=== PATIENT | female | born 1950 | race Caucasian/White ===

== ENCOUNTER 2017-06-08 12:22 | Emergency (ER) | payer MEDICARE, BC ==
[2017-06-08 12:37] VITALS: BP 116/86
[2017-06-08] MEDS ORDERED: methylPREDNISolone 125 MG* 2 ML VIAL IM ONE (13:37)
--- NOTE | 2017-06-08 14:00 | UC ---
Skin Complaint HPI - HPI Summary HPI Summary: HIVE RASH ON ARMS AND LEGS FOR TWO DAYS. HAPPENED BEFORE, GIVEN SHOT HERE WHICH HELPED. RASH IS NOT PAINFUL BUT ITCHES. NO DRAINAGE. - History of Current Complaint Chief Complaint: UCRash Time Seen by Provider: 06/08/17 13:32 Stated Complaint: SKIN COMPLAINT Hx Obtained From: Patient, Family/Audio Video Tech Onset/Duration: Sudden Onset, Still Present Skin Exposure Onset/Duration: Days Ago Onset Severity: Mild Current Severity: Mild Location: Generalized - UPPER ARMS, THIGHS, STERNUM OF CHEST Character: Pruritus, Hives, Raised Aggravating: Nothing, Touch Alleviating: Nothing, Unknown, Other - GIVEN SHOT HERE LAST TIME WHICH HELPED Associated Signs & Symptoms: Positive: Negative, Rash. Negative: Fever, Chills , Cough, Hoarseness, Throat Tightening, Drainage, Bruising, Tenderness, Red Streaks Related History: Possible Reaction to: Environmental Exposure - Allergy/Home Medications Allergies/Adverse Reactions: Allergies Allergy/AdvReac Type Severity Reaction Status Date / Time No Known Allergies Allergy Verified 06/08/17 12:30 Review of Systems Constitutional: Negative Skin: Rash Eyes: Negative ENT: Negative Respiratory: Negative Cardiovascular: Negative Gastrointestinal: Negative Genitourinary: Negative Motor: Negative Neurovascular: Negative Musculoskeletal: Negative Neurological: Negative Psychological: Negative All Other Systems Reviewed And Are Negative: Yes PMH/Surg Hx/FS Hx/Imm Hx Previously Healthy: Yes - Surgical History Surgical History: Yes Surgery Procedure, Year, and Place: right lumpectomy 2005 - Family History Known Family History: Negative: Cardiac Disease, Hypertension, Diabetes - Social History Lives: With Family Alcohol Use: None Substance Use Type: None Smoking Status (MU): Former Smoker Type: Cigarettes When Did the Patient Quit Smoking/Using Tobacco: 2005 Physical Exam Triage Information Reviewed: Yes Appearance: Well-Appearing, No Pain Distress, Well-Nourished Vital Signs: Initial Vital Signs Temp 97.9 F 06/08/17 12:31 Pulse 87 06/08/17 12:31 Resp 16 06/08/17 12:31 BP 116/86 06/08/17 12:31 Pulse Ox 98 06/08/17 12:31 Vital Signs Reviewed: Yes Eye Exam: Normal ENT Exam: Normal ENT: Positive: Normal ENT inspection, TMs normal Dental Exam: Normal Neck exam: Normal Neck: Positive: Supple, Nontender Respiratory Exam: Normal Respiratory: Positive: Chest non-tender, Lungs clear, Normal breath sounds, No respiratory distress Cardiovascular Exam: Normal Cardiovascular: Positive: RRR, No Murmur Abdominal Exam: Normal Abdomen Description: Positive: Nontender, No Organomegaly Musculoskeletal Exam: Normal Neurological Exam: Normal Psychological Exam: Normal Skin: Positive: rashes - URTICARIAL RASH UPPER ARMS, THIGHS, STERNUM OF CHEST Course/Dx - Differential Diagnoses - Skin Complaint Differential Diagnoses: Contact Dermatitis, Eczema, Poison [place], Poison [place], Systemic Illness, Tinea, Urticaria, Viral [place] - Diagnoses Provider Diagnoses: URTICARIA Discharge - Discharge Plan Condition: Stable Disposition: HOME Prescriptions: Triamcinolone 0.1% Oint (NF) [Triamcinolone Acetonide] 0.1 % TOPICAL BID #1 oin Patient Education Materials: Contact Dermatitis (ED), Urticaria (ED) Referrals: Patric ANDERS,Anne-Marie Mallory [Primary Care Provider] - Additional Instructions: TAKE BENADRYL 50 MG PO BID FOR FIVE DAYS
== END 2017-06-08 14:02 | disposition home or self-care (01) ==
LOC: UCCORT 12:22
DX: L50.9 Urticaria, unspecified (principal); Z87.891 Personal history of nicotine dependence
CPT/HCPCS: 96372; 99212; G0463; J2930

== ENCOUNTER 2017-06-15 11:20 | Emergency (ER) | payer MEDICARE, BC ==
[2017-06-15 11:56] VITALS: BP 147/82
[2017-06-15] MEDS ORDERED: methylPREDNISolone ACETATE 40* 40 MG/ML 1 ML VIAL IM ONE (11:59)
[2017-06-15] MEDS ORDERED: methylPREDNISolone ACETATE 80* 80 MG/ML 1 ML VIAL ONE (12:03)
--- NOTE | 2017-06-15 12:11 | UC ---
Skin Complaint HPI - HPI Summary HPI Summary: PATIENT has had a longstaing rash, was treated with triamcinolone which helps it temporarily but then reappears. it is itchy, located in the arm folds, stomach, chest and groin. - History of Current Complaint Chief Complaint: UCSkin Time Seen by Provider: 06/15/17 11:46 Stated Complaint: RASH Hx Obtained From: Patient ?: No Onset/Duration: Gradual Onset, Lasting Weeks Skin Exposure Onset/Duration: Weeks Ago Timing: Constant Onset Severity: Moderate Current Severity: Moderate Location: Diffuse Character: Swelling, Hives, Redness Aggravating: Nothing Alleviating: OTC Creams/Salves Associated Signs & Symptoms: Positive: Negative Related History: Possible Reaction to: Animal - Allergy/Home Medications Allergies/Adverse Reactions: Allergies Allergy/AdvReac Type Severity Reaction Status Date / Time No Known Allergies Allergy Verified 06/08/17 12:30 Review of Systems Constitutional: Negative Skin: Rash Eyes: Negative ENT: Negative Respiratory: Negative Cardiovascular: Negative Gastrointestinal: Negative Genitourinary: Negative Motor: Negative Neurovascular: Negative Musculoskeletal: Negative Neurological: Negative Psychological: Negative All Other Systems Reviewed And Are Negative: Yes PMH/Surg Hx/FS Hx/Imm Hx Previously Healthy: Yes - Surgical History Surgical History: Yes Surgery Procedure, Year, and Place: right lumpectomy 2005 - Family History Known Family History: Negative: Cardiac Disease, Hypertension, Diabetes - Social History Alcohol Use: None Substance Use Type: None Smoking Status (MU): Former Smoker Type: Cigarettes When Did the Patient Quit Smoking/Using Tobacco: 2005 Physical Exam Triage Information Reviewed: Yes Appearance: Well-Appearing, Well-Nourished, Pain Distress Vital Signs: Initial Vital Signs Temp 99.0 F 06/15/17 11:47 Pulse 77 06/15/17 11:47 Resp 14 06/15/17 11:47 BP 147/82 06/15/17 11:47 Pulse Ox 94 06/15/17 11:47 Vital Signs Reviewed: Yes Eye Exam: Normal ENT Exam: Normal Neck exam: Normal Neck: Positive: Supple, Nontender, No Lymphadenopathy Respiratory Exam: Normal Respiratory: Positive: Chest non-tender, Lungs clear, Normal breath sounds Cardiovascular Exam: Normal Cardiovascular: Positive: RRR, No Murmur, Pulses Normal Abdominal Exam: Normal Abdomen Description: Positive: Nontender, No Organomegaly, Soft Bowel Sounds: Positive: Present Musculoskeletal Exam: Normal Musculoskeletal: Positive: Strength Intact, ROM Intact, No Edema Neurological Exam: Normal Neurological: Positive: Alert, Muscle Tone Normal Psychological Exam: Normal Skin: Positive: rashes - large red hives located on all anterior areas of the body Course/Dx - Course Course Of Treatment: hx obtained, exam performed ,meds reviewed, depo medrol given, prednisone prescribed. recommend follow up with PCP - Differential Diagnoses - Skin Complaint Differential Diagnoses: Allergic Reaction, Cellulitis, Contact Dermatitis, Local Allergic Reaction, Tinea - Diagnoses Provider Diagnoses: urticaria Discharge - Discharge Plan Condition: Stable Disposition: HOME Prescriptions: predniSONE TAB* [Deltasone TAB*] 20 mg PO DAILY #18 tab Patient Education Materials: Urticaria (ED), Cold Compress or Soak (ED) Additional Instructions: 1. take the medication as prescribed. 2. INcrease fluid intake 3. Start a daily zyrtec or claritin 4. follow up with your PCP
== END 2017-06-15 12:28 | disposition home or self-care (01) ==
LOC: UCCORT 11:20
DX: L50.9 Urticaria, unspecified (principal); Z87.891 Personal history of nicotine dependence
CPT/HCPCS: 96372; 99212; G0463; J1030; J1040